=== PATIENT | female | born 1965 | race Caucasian/White ===

== ENCOUNTER → 2017-05-02 | Outpatient (CLI) | payer OTHER, BC ==
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
== END | disposition home or self-care (01) ==
LOC: SMRI 13:59
DX: S13.4XXA Sprain of ligaments of cervical spine, initial encounter (principal); M50.222 Other cervical disc displacement at C5-C6 level; M50.223 Other cervical disc displacement at C6-C7 level; M48.02 Spinal stenosis, cervical region
CPT/HCPCS: 72141

== ENCOUNTER → 2017-06-13 | Outpatient (CLI) | payer BC, OTHER ==
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
== END | disposition home or self-care (01) ==
LOC: SMRI 15:13
DX: M25.811 Other specified joint disorders, right shoulder (principal); R93.7 Abnormal findings on diagnostic imaging of other parts of musculoskeletal system
CPT/HCPCS: 73221